=== PATIENT | female | born 1985 | race Caucasian/White ===

== ENCOUNTER 2025-04-17 19:11 | Emergency (ER) | payer BC, OTHER ==
[~2025-04-17] VITALS: Ht 162.6 cm; Wt 88.0 kg
--- NOTE | 2025-04-17 19:46 | ED.PDOC ---
Back pain HPI HPI Comments PT C/O 06/12 PAIN TO LEFT PINKY FINGER S/P POSSIBLE BREAK FROM INJURY PLAYING VOLLEYBALL THIS AFTERNOON. DEFORMITY NOTED TO FINGER ON ASSSESSMENT, PT DENIES LOSS OF FEELING, BUT SAYS SHE HAS NUMBNESS AND TINGLING TO AREA. PT A&OX4, VSS, RR EVEN AND UNLABORED ON RA. Chief Complaint: Upper Extremity Time Seen by MD: 19:14 Reviewed Notes: Nurses Notes, Medications, Allergies Allergies: Coded Allergies: Shrimp Flavor (Verified Allergy, Unknown, 04/17/25) Information Source: Patient Past Medical History PAST MEDICAL HISTORY: Denies Surgical History: Denies all surgeries ENGINEERING WRITER History: No Pertinent ENGINEERING WRITER History Family History Family History: Reviewed,noncontributory to illness Social History Smoker: Non-Smoker Alcohol: Denies ETOH Use Drugs: Denies Drug Use Constitutional: denies: chills, diaphoresis, fatigue, fever, malaise, sweats, weakness, others EENTM: denies: blurred vision, double vision, ear bleeding, ear discharge, ear drainage, ear pain, ear ringing, eye pain, eye redness, hearing loss, mouth pain, mouth swelling, nasal discharge, nose bleeding, nose congestion, nose pain, photophobia, tearing, throat pain, throat swelling, voice changes, others Respiratory: denies: cough, hemoptysis, orthopnea, SOB at rest, shortness of breath, SOB with excertion, stridor, wheezing, others Cardiovascular: denies: chest pain, dizzy spells, diaphoresis, Dyspnea on exertion, edema, irregular heart beat, left arm pain, lightheadedness, palpitations, PND, syncope, others Gastrointestinal: denies: abdomen distended, abdominal pain, blood streaked bowels, constipated, diarrhea, dysphagia, difficulty swallowing, hematemesis, melena, nausea, poor appetite, poor fluid intake, rectal bleeding, rectal pain, vomiting, others Genitourinary: denies: abnormal vagina bleeding, burning, dyspareunia, dysuria, flank pain, frequency, hematuria, incontinence, pain, , vagina discharge, urgency, others Neurological: denies: dizziness, fainting, headache, left sided numbness, left sided weakness, numbness, paresthesia, pre-existing deficit, right sided numbness, right sided weakness, seizure, speech problems, tingling, tremors, weakness, others Musculoskeletal: reports: joint pain, joint swelling; denies: back pain, gout, muscle pain, muscle stiffness, neck pain, others Integumetry: denies: bruises, change in color, change in hair/nails, dryness, laceration, lesions, lumps, rash, wounds, others Allergic/Immunocompromised: denies: Difficulty Healing, Frequent Infections, Hives, Itching, others Hematologic/Lymphatic: denies: anemia, blood clots, easy bleeding, easy bruising, swollen glands, others Endocrine: denies: excessive hunger, excessive sweating, excessive thirst, excessive urination, flushing, intolerance to cold, intolerance to heat, unexplained weight gain, unexplained weight loss, others Psychiatric: denies: anxiety, bipolar disorder, depression, hopeless, panic disorder, schizophrenia, sleepless, suicidal, others Physical Exam General Appearance: No Apparent Distress, Normal HEENT: Pharynx Normal Neck: Full Range of Motion, Non-Tender Respiratory: Lungs Clear, No Respiratory Distress, Normal Breath Sounds Cardiovascular: No Murmur, Normal Peripheral Pulses, Regular Rate/Rhythm Breast Exam: Deferred Gastrointestinal: Non Tender, Soft Genitalia: Deferred Pelvic: Deferred Rectal: Deferred Extremities: Normal capillary refill, Normal inspection, Normal range of motion Musculoskeletal : Location: Left Extremity Location: Little Finger (MODERATE TENDERNESS DISTAL PHALANX STRENGTH SENSORY MOTION INTACT CAP REFILL LESS THAN 2 SECONDS TRACE EDEMA NO NOTED ABRASIONS OR LACERATIONS) Apperance: Normal Neurologic: Alert, underwriting sales representative II-XII nml as Tested, No Motor Deficits, Normal Affect, Normal Mood, No Sensory Deficits Cerebellar Function: Normal Reflexes: Normal Skin: Dry, Normal Color, Warm Lymphatic: No Adenopathy Was a procedure done? Was a procedure done?: No Back Pain Differential Dx Differential Diagnosis: Fracture, Musculoskeletal Pain X-Ray, Labs, Meds, VS Vital Signs Date Time Temp Pulse Resp B/P (MAP) Pulse Ox O2 Delivery O2 Flow Rate FiO2 04/17/25 19:30 98.0 82 18 125/76 (92) 96 98.0 X-Ray, Labs, Meds, VS Comment LEFT HAND X-RAY SHOWS NO ACUTE FRACTURES OSSEOUS LESIONS OR DISLOCATIONS OR SUBLUXATIONS. PATIENT PLACED IN FINGER SPLINT. SCRIPT IBUPROFEN 800 MG ADVISED TO TAKE MEDICATIONS PRESCRIBED SIDE EFFECTS DISCUSSED. ADVISED ON RICE. ADVISED TO FOLLOW UP WITH HER PCP IN 2-3 DAYS NECESSARY CONSIDER FURTHER IMAGING IF SYMPTOMS PERSIST. ER RETURN PRECAUTIONS GIVEN PATIENT INDICATES UNDERSTANDING AND AGREES WITH DISCHARGE PLAN OF CARE. Time of 1ST Reevaluation: 19:46 Reevaluation 1ST: Unchanged Time of 2ND Reevaluation: 20:49 Reevaluation 2ND: Unchanged Patient Education/Counseling: Diagnosis, Treatment, Prognosis, Need For Follow Up Family Education/Counseling: No Family Present Departure 1 Departure Time of Disposition: 20:50 Impression: Primary Impression: Sprain of left little finger Qualified Codes: S63.637A - Sprain of interphalangeal joint of left little finger, initial encounter Disposition: 01 HOME / SELF CARE / HOMELESS Condition: Stable Discharged With: Self Critical Care Note Critical Care Time?: No Stability Stability form required: PEDRO Stinson Apr 17, 2025 19:46
--- NOTE | 2025-04-17 20:22 | DVH ---
CLINICAL INDICATION: 5TH DIGIT INJURY TECHNIQUE: 4 views of the left hand XY L HAND 3V XRAY Comparison: None FINDINGS/IMPRESSION: There is no evidence of acute fracture or dislocation. Soft tissues are unremarkable.
[2025-04-17 21:00] VITALS: BP 138/97; PULSE 66; RESP 14; TEMP 98.3; O2SAT 96
[2025-04-17] MEDS: KETOROLAC TROMETH 60MG/2ML VIAL IM ONE (21:05)
== END 2025-04-17 21:16 | disposition home or self-care (01) ==
LOC: ER 19:11
DX: S63.617A Unspecified sprain of left little finger, initial encounter (principal); Z91.013 Allergy to seafood; X58.XXXA Exposure to other specified factors, initial encounter; Y93.68 Activity, volleyball (beach) (court); Y92.89 Other specified places as the place of occurrence of the external cause; Y99.8 Other external cause status
CPT/HCPCS: 29130; 73130; 96372; 99283; J1885